=== PATIENT | male | born 1975 | race Caucasian/White ===

== ENCOUNTER → 2024-06-15 14:25 | Outpatient (REF) | payer BC, SELFPAY | LOC: HWRAD 14:25 | PROVIDERS: ATTENDING PHYSICIAN Specialist; FAMILY PHYSICIAN Nurse Practitioner Adult Health | DX: N13.30 Unspecified hydronephrosis (principal) | CPT/HCPCS: 74178; Q9967 ==

== ENCOUNTER 2024-12-05 06:11 | Day surgery (SDC) | payer BC, SELFPAY ==
[2024-12-05 11:15] VITALS: BMI 62.1
[2024-12-05 11:20] VITALS: BP 124/79
[2024-12-05 11:46] VITALS: BMI 62.1
[2024-12-05 13:54] VITALS: BP 151/90
[2024-12-05 14:00] VITALS: BP 121/80
[2024-12-05 14:15] VITALS: BP 130/101
== END 2024-12-05 14:29 | disposition home or self-care (01) ==
LOC: GI 06:11
PROVIDERS: ATTENDING PHYSICIAN Student in an Organized Health Care Education/Training Program
DX: R12 Heartburn (principal); K31.89 Other diseases of stomach and duodenum; Z13.810 Encounter for screening for upper gastrointestinal disorder
CPT/HCPCS: 43239; 88305; 88342